=== PATIENT | male | born 1945 | race Asian ===

== ENCOUNTER → 2018-11-09 | Outpatient (CLI) | payer MEDICARE, BC ==
[2018-11-09 08:47] LABS: BLOOD UREA NITROGEN 20 mg/dL (7-18); CREATININE 1.3 MG/DL (0.55-1.30)
--- NOTE | 2018-11-09 12:50 | Diagnostic Imaging Report ---
Clinical Indication: Abdominal pain Technique: Patient given oral contrast. IV administration nonionic contrast. Venous phase spiral acquisition obtained through the abdomen and pelvis. Multiplanar reconstructions were generated. Total dose length product 839.04 mGycm. CTDIvol(s) 16.82 mGy. Dose reduction achieved using automated exposure control Comparison: none Findings: What may be an unusually short appendix versus an appendiceal stump are demonstrated. No evidence of acute appendicitis. No evidence of diverticulosis or diverticulitis. No small bowel distention. There is questionably a small sliding-type hiatal hernia. The stomach is otherwise unremarkable. The duodenum is unremarkable. No small bowel distention or small bowel wall thickening. No free or loculated intraperitoneal gas or fluid is evident. There is a tiny umbilical hernia which contains only fat The gallbladder contains calcified gallstones. A 12 mm intraluminal opacity within the gallbladder is much less dense than the calcified gallstones. Liver demonstrates a subcentimeter low-attenuation lesion in segment 8 which is too small characterize. The pancreas, spleen, adrenals are unremarkable. There is an isolated tiny varix adjacent to the splenic hilum. The kidneys are unremarkable. No retroperitoneal or mesenteric mass or adenopathy. No pelvic mass or adenopathy. The prostate is enlarged, measuring 5 cm transverse diameter. The included lung bases demonstrate some posterior dependent atelectatic changes. The bones demonstrate degenerative spondylosis changes. Impression: No definite acute process Calcified gallstones. Larger less dense opacity within the gallbladder probably represents a noncalcified stone, but the possibility of a polyp should be considered, and further investigation with ultrasound is recommended Questionable small focal varix adjacent to the splenic hilum, significance uncertain Prostatomegaly Subcentimeter right lobe liver lesion, too small to characterize, most likely benign simple cyst or bile hamartoma. No further follow-up necessary Other findings as noted, including degenerative spondylosis changes, posterior dependent pulmonary atelectatic changes, possible small sliding-type hiatal hernia, small fat-containing umbilical hernia The CT scanner at [facility] [place] is accredited by the [employer] and the scans are performed using protocols designed to limit radiation exposure to as low as reasonably achievable to attain images of sufficient resolution adequate for diagnostic evaluation.
== END | disposition home or self-care (01) ==
LOC: CAT 08:30
DX: K80.80 Other cholelithiasis without obstruction (principal)
CPT/HCPCS: 36415; 74177; 82565; 84520; Q9967

== ENCOUNTER 2019-03-23 05:47 | Day surgery (SDC) | payer MEDICARE, BC ==
[~2019-03-23] VITALS: Ht 172.7 cm; Wt 81.2 kg
[2019-03-23] VITALS (10 sets, daily range): BP systolic 103–129; BP diastolic 64–76
[~2019-03-23 05:47] MED LIST: PROSCAR5 MG ORAL
[2019-03-23] MEDS ORDERED: Acetaminophen (Non formulary) 100 ML IV ONE (06:00)
[2019-03-23] MEDS ORDERED: ceFAZolin 1gm IVPB IVPB ONE ×2 (06:00)
[2019-03-23] MEDS ORDERED: celeBREX 200mg Cap **SURGERY PATIENTS ONLY ORAL ONE (06:00)
[2019-03-23] MEDS ORDERED: oxyCONTIN 20mg tab ORAL ONE (06:00)
--- NOTE | 2019-03-23 06:55 | Pre-Procedure Note/Attestation ---
Pre-Procedure Note/Attestation Complete Prior to Procedure Planned Procedure: left Procedure Narrative: left middle finger trigger release Indications for Procedure Pre-Operative Diagnosis: left middle trigger finger Attestation I attest that I discussed the nature of the procedure; its benefits; risks and complications; and alternatives (and the risks and benefits of such alternatives ), prior to the procedure, with the patient (or the patient's legal auto service representative). I attest that, if there was a reasonable possibility of needing a blood transfusion, the patient (or the patient's legal auto service representative) was given the [facility] standardized written summary, pursuant to the [place] Blood Safety Act ([place] Health and Safety Code # 1645, as amended). I attest that I re-evaluated the patient just prior to the surgery and that there has been no change in the patient's H&P, except as documented below:NONE Paul Bird MD Mar 23, 2019 06:55
[2019-03-23] MEDS ORDERED: HYDROmorphone 1mg/ml Carpuject SUBQ PRN (07:00)
[2019-03-23] MEDS ORDERED: HYDROcodone/Acetamin 5/325 tab ORAL PRN (07:00)
[2019-03-23] MEDS ORDERED: LR 1000ml ONE (07:00)
[2019-03-23] MEDS ORDERED: Tylenol #3 tab (300mg/30mg) ORAL PRN (07:00)
[2019-03-23] MEDS ORDERED: D5 1/2NS 1,000 ML IV SCH (07:00)
[2019-03-23] MEDS ORDERED: Sterile Water Irrig 1000ml IRRIG ONE (07:00)
[2019-03-23] MEDS ORDERED: Lidocaine 1% MPF 10mg/ml 5ml ONE (07:04)
[2019-03-23] MEDS ORDERED: Propofol 200mg/20ml IV ONE (07:04)
[2019-03-23] MEDS ORDERED: fentaNYL 100 mcg/2 mL IV ONE (07:04)
[2019-03-23] MEDS ORDERED: Bupivacaine 0.5% Inj 30 ml vial INJ ONE (07:16)
[2019-03-23] MEDS ORDERED: Lidocaine 1% Plain 30 ml INJ ONE (07:16)
[2019-03-23] MEDS ORDERED: Bupivacaine 0.25% Inj 30ml INJ ONE (07:16)
--- NOTE | 2019-03-23 07:50 | Brief Operative Note ---
Immediate Post Operative Note Operative Note Chief Complaint: left trigger finger Pre-op Diagnosis: left middle trigger finger Procedure: left middle trigger finger release Post-op Diagnosis: same as pre-op Findings: consistent w/pre-op dx studies Surgeon: md apoorva Anesthesiologist: md ivelisse Anesthesia: general Specimen: none Complications: none Condition: stable Fluids: ns Estimated Blood Loss: minimal Drains: none Implant(s) used?: No Paul Bird MD Mar 23, 2019 07:50
[2019-03-23] MEDS ORDERED: NS Irrig 1000ml IRRIG ONE (07:55)
[2019-03-23] MEDS ORDERED: LR 1000ml 1,000 ML IVLG SCH (07:56)
--- NOTE | 2019-03-23 07:56 | Anethesia Preoperative Eval ---
Anesthesia Pre-op PMH/ROS General Date of Evaluation: Mar 23, 2019 Time of Evaluation: 07:35 Anesthesiologist: Tyra ASA Score: ASA 2 Mallampati Score Class I : Soft palate, uvula, fauces, pillars visible Class II: Soft palate, uvula, fauces visible Class III: Soft palate, base of uvula visible Class IV: Only hard plate visible Mallampati Classification: Class II Surgeon: Pelon Diagnosis: L wrist pain Surgical Procedure: L middle trigger finger release Anesthesia History: none Family History: no anesthesia problems Allergies: Coded Allergies: No Known Allergies (Unverified , 03/22/19) Medications: see eMAR Patient NPO?: Yes Past Medical History Cardiovascular: Reports: HTN - borderline, arrhythmia - occasional palpitation ; Denies: CAD, AR, valve dz, other Pulmonary: Denies: asthma, COPD, RANCHO, other Gastrointestinal/Genitourinary: Reports: GERD - mild, 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 Exam Physician Exam Last Vital Signs Date Time Temp Pulse Resp B/P (MAP) Pulse Ox O2 Delivery O2 Flow Rate FiO2 03/23/19 06:28 97.6 68 20 129/75 96 Room Air Constitutional: NAD Neurologic: CN 2-12 intact Cardiovascular: RRR, no M/R/G Respiratory: CTA Gastrointestinal: S/NT/ND Airway Exam Mallampati Score: Class II MO: limited Neck: stiff ROM: full Teeth: intact Dentures: no upper, no lower Anesthesia Pre-op A/P Labs see chart Studies Pre-op Studies: EKG - R bbb Risk Assessment & Plan Assessment: ASA 2 Plan: GA with LMA Status Change Before Surgery: No Pre-Antibiotics Drug: Ancef 1 gr. Given Within 1 Hr of Incision: Yes Time Given: 07:40 Eugene Mary MD Mar 23, 2019 07:56
[2019-03-23] MEDS ORDERED: fentaNYL 100 mcg/2 mL IV PRN (08:00)
[2019-03-23] MEDS ORDERED: Ketorolac 30mg Inj IV PRN (08:00)
--- NOTE | 2019-03-23 08:23 | Immediate Post-Op Evaluation ---
Immediate Post-Op Evalulation Immediate Post-Op Evalulation Procedure: L middle trigger finger release Date of Evaluation: Mar 23, 2019 Time of Evaluation: 08:22 IV Fluids: 500 Blood Products: none Estimated Blood Loss: min Urinary Output: none Blood Pressure Systolic: 116 Blood Pressure Diastolic: 58 Pulse Rate: 72 Respiratory Rate: 16 O2 Sat by Pulse Oximetry: 99 Temperature (Fahrenheit): 97.4 Pain Score (1-10): 1 Nausea: No Vomiting: No Complications none Patient Status: reacts, patent, none Hydration Status: adequate Eugene Mary MD Mar 23, 2019 08:23
--- NOTE | 2019-03-23 09:21 | 48 Hour Post Anesthesia Eval ---
Post Anesthesia Evaluation Procedure: L middle trigger finger release Date of Evaluation: Mar 23, 2019 Time of Evaluation: 09:20 Blood Pressure Systolic: 116 0: 57 Pulse Rate: 58 Respiratory Rate: 18 Temperature (Fahrenheit): 97.6 O2 Sat by Pulse Oximetry: 97 Airway: patent Nausea: No Vomiting: No Pain Intensity: 1 Hydration Status: adequate Cardiopulmonary Status: stable Mental Status/LOC: patient returned to baseline Follow-up Care/Observations: n/a Post-Anesthesia Complications: none Follow-up care needed: ready to discharge Eugene Mary MD Mar 23, 2019 09:21
--- NOTE | 2019-03-23 10:15 | Operative Note - Dictated ---
DATE OF OPERATION: 03/23/2019 PREOPERATIVE DIAGNOSIS: Left hand middle finger trigger finger. POSTOPERATIVE DIAGNOSIS: Left hand middle finger trigger finger. PROCEDURE: Left hand trigger finger release of the third finger (middle finger) with tenosynovectomy. SURGEON: Paul Bird M.D. INSTRUCTOR FLYING: Silva Presley PA-C. ANESTHESIOLOGIST: Eugene Mary M.D. ANESTHESIA: General LMA anesthesia combined with local block with 0.5% Marcaine plain. ESTIMATED BLOOD LOSS: Minimal. TOURNIQUET TIME: 15 minutes. COMPLICATIONS: None. BRIEF HISTORY: The patient is a pleasant 73-year-old gentleman, who has had ongoing triggering of the middle finger. He has had similar problems on other fingers and he first had an injection and it subsequently had released. He continued to have triggering and he failed conservative nonsurgical treatment. After full discussion of risks and benefits of surgery and complications associated with it including infection, bleeding, neurovascular complication, possibility of continued pain, possibility of need for further surgery, and recurrence of triggering, he opted for surgical treatment as described above. OPERATIVE PROCEDURE: The patient was brought to the operating room table and was placed supine. All pressure points well padded. General LMA anesthesia was induced. The left hand was prepped and draped in usual sterile fashion. The left hand was exsanguinated and tourniquet was inflated to 275 mmHg. The distal palmar crease was identified over the middle finger. A 1.5 cm incision was made over the distal palmar crease. Care was given to protect the digital nerves and artery. The incision was taken through the subcutaneous tissue and using Littler scissors, subcutaneous dissection was performed all the way down to the A1 fabian. At this point, Ragnell retractors were placed on the radial side and ulnar side of the fabian and retracting the digital nerves and artery. The A1 fabian was then identified and this was released initially with the knife and subsequently with Littler scissors to completely release the tendons. At this point, the superficial and profundus tendons were then brought out and examined. There were no tears. The wounds were thoroughly irrigated and the wounds were injected with 0.5% Marcaine plain. The skin was closed using 4-0 horizontal mattress everted sutures. Sterile dressing was applied. The tourniquet was deflated. The patient was taken to recovery room in stable condition. All lap counts and instrument counts were correct. Paul Bird M.D. DR: MAINE JOB#: [id number] CC:
--- NOTE | 2019-03-24 17:10 | Cardiology Report ---
APPROVED REPORT EKG Measurement Heart [id number] ID [id number] Normal sinus rhythm Right bundle branch block Abnormal ECG
== END 2019-03-23 10:50 | disposition home or self-care (01) ==
LOC: SUR 05:47
DX: M65.332 Trigger finger, left middle finger (principal); I45.10 Unspecified right bundle-branch block; K21.9 Gastro-esophageal reflux disease without esophagitis; I12.9 Hypertensive chronic kidney disease with stage 1 through stage 4 chronic kidney disease, or unspecified chronic kidney disease; N18.9 Chronic kidney disease, unspecified
CPT/HCPCS: 26055; 26145; 93005; J0690; J2704; J3010; J3490; 94003; 94150